=== PATIENT | female | born 1980 | race Caucasian/White ===

== ENCOUNTER 2018-12-15 13:50 | Emergency (ER) | payer MEDICAID ==
[~2018-12-15] VITALS: Ht 152.4 cm; Wt 73.0 kg
[2018-12-15 13:52] VITALS: BP 108/59; PULSE 94; RESP 18; Ht 152.4 cm; Wt 73.0 kg
--- NOTE | 2018-12-15 14:11 | EN ---
Date/Time of Note Date/Time of Note DATE: 12/15/18 TIME: 14:09 ER Progress Note 38-year-old female, A1, LMP 11/23/2018, presents to the ER, referred by her primary doctor after having a Pap smear yesterday for an ultrasound and evaluation of persistent pelvic pain. Patient seen initially in ED 3, patient is stable to go to ED to for further management. EZRA MAYERS MD Dec 15, 2018 14:11
--- NOTE | 2018-12-15 15:03 | ERD ---
ER Documentation Chief Complaint Chief Complaint right inguinal area radiating to the back HPI 38-year-old female presents complaint of bilateral pelvic pain for the past 2 weeks. In addition she is been having lower back pain for the past 2 weeks as well. Patient denies any history of gynecologic pathology. Patient denies any fevers, chills, vomiting, nausea, diarrhea, anorexia, dysuria, hematuria. Patient is ambulatory without difficulty. ROS All systems reviewed and are negative except as per history of present illness. Medications Home Meds Active Scripts Hydrocodone/Acetaminophen ([place] 5-325 Tablet) 1 Each Tablet, 1-2 TAB PO Q6H PRN for PAIN, #15 TAB Prov:ERIC CHANEY 12/15/18 Allergies Allergies: Coded Allergies: No Known Allergy (Unverified , 12/15/18) PMhx/Soc Medical and Surgical Hx: pt denies Medical Hx History of Surgery: Yes (C/S) Anesthesia Reaction: No Hx Alcohol Use: No Hx Substance Use: No Hx Tobacco Use: No Smoking Status: Never smoker FmHx Family History: No diabetes, No coronary disease, No other Physical Exam Vitals Vital Signs Date Temp Pulse Resp B/P (MAP) Pulse Ox O2 O2 Flow FiO2 Time Delivery Rate 12/15/18 97.7 94 18 108/59 98 13:52 (75) Physical Exam Const: No acute distress Head: Atraumatic Eyes: Normal Conjunctiva ENT: Normal External Ears, Nose and Mouth. Neck: Full range of motion. No meningismus. Resp: Clear to auscultation bilaterally Cardio: Regular rate and rhythm, no murmurs Abd: Mild tenderness to palpation in the lower right and left quadrants without guarding or rigidity. Otherwise nontender nondistended abdomen. Able to jump up and down on exam. Skin: No petechiae or rashes Back: Mild bilateral CVA tenderness. Full range of motion. Ext: No cyanosis, or edema Neur: Awake and alert Psych: Normal Mood and Affect Result Diagram: 12/15/18 1447 12/15/18 1447 Results 24 hrs Laboratory Tests Test 12/15/18 14:35 12/15/18 14:37 12/15/18 14:47 POC Beta HCG, Qualitative NEGATIVE Bedside Urine pH (LAB) 5.5 Bedside Urine Protein (LAB) Negative Bedside Urine Glucose (UA) Negative Bedside Urine Ketones (LAB) Negative Bedside Urine Blood Trace-lysed Bedside Urine Nitrite (LAB) Negative Bedside Urine Leukocyte Esterase Negative (L White Blood Count 7.6 10^3/ul Red Blood Count 3.99 10^6/ul Hemoglobin 12.1 g/dl Hematocrit 35.8 % Mean Corpuscular Volume 89.7 fl Mean Corpuscular Hemoglobin 30.3 pg Mean Corpuscular 33.8 g/dl Hemoglobin Concent Red Cell Distribution Width 12.5 % Platelet Count 289 10^3/UL Mean Platelet Volume 10.2 fl Immature Granulocytes % 0.300 % Neutrophils % 66.2 % Lymphocytes % 26.3 % Monocytes % 5.4 % Eosinophils % 1.3 % Basophils % 0.5 % Nucleated Red Blood Cells % 0.0 /100WBC Immature Granulocytes # 0.020 10^3/ul Neutrophils # 5.0 10^3/ul Lymphocytes # 2.0 10^3/ul Monocytes # 0.4 10^3/ul Eosinophils # 0.1 10^3/ul Basophils # 0.0 10^3/ul Nucleated Red Blood Cells # 0.0 10^3/ul Urine Color YELLOW Urine Clarity CLEAR Urine pH 5.0 Urine Specific [place] 1.014 Urine Ketones NEGATIVE mg/dL Urine Nitrite NEGATIVE mg/dL Urine Bilirubin NEGATIVE mg/dL Urine Urobilinogen NEGATIVE mg/dL Urine Leukocyte Esterase NEGATIVE [place]/ul Urine Hemoglobin NEGATIVE mg/dL Urine Glucose NEGATIVE mg/dL Urine Total Protein NEGATIVE mg/dl Sodium Level 140 mmol/L Potassium Level 4.6 mmol/L Chloride Level 105 mmol/L Carbon Dioxide Level 25 mmol/L Anion Gap 10 Blood Urea Nitrogen 14 mg/dl Creatinine 1.12 mg/dl Est Glomerular Filtrat 55 mL/min Rate mL/min Glucose Level 108 mg/dl Calcium Level 9.6 mg/dl Procedures/[facility] DIAGNOSTIC IMAGING REPORT Patient: TACOS KENT : 1980 Age: 38 Sex: F MR #: [id number] [facility] #: [id number] DOS: 12/15/18 0000 Ordering MD: EZRA MAYERS MD Location: [facility]TE Room/Bed: PROCEDURE: US Pelvis. CLINICAL INDICATION: Pelvic pain. TECHNIQUE: The pelvis was evaluated with transabdominal and transvaginal son ography in the axial and sagittal planes. COMPARISON: No prior study is available for comparison. FINDINGS: Uterus: 9.5 x 3.4 x 2.6 cm. Endometrium: 11 mm. Right ovary: 3.4 x 2.6 x 2.3 cm. Left ovary: 3.8 x 3 x 2 cm. Uterine masses: There are several fibroids of the uterus. There is an index 1.7 x 1.4 cm hypoechoic lesion within the posterior myometrium, likely a fibroid. There is another subserosal fibroid within the uterus measuring 2.1 x 1.8 cm. Ovarian masses: None. Color Doppler and pulsed Doppler sonography demonstrate normal flow to the ovaries. Other pelvic masses: None. Free fluid: None. IMPRESSION: 1. Fibroid uterus. 2. Bilateral ovarian flow. RPTAT: QQ Physician Nicola Date Time Electronically viewed and signed by Physician Nicola on 12/15/2018 15:59 RD/ CC: EZRA MAYERS MD [id number] MDM: Patient denies any fevers, anorexia, is able to jump up and down on exam, has no white counts or neutrophilia. Therefore I have very low suspicion for appendicitis. Pelvic ultrasound was ordered and results are positive for fibroids which could explain patient's bilateral pelvic tenderness. I have low suspicion for ectopic , ovarian torsion, PID, tubo-ovarian abscess, uterine prolapse, ovarian cancer, uterine cancer, nephrolithiasis, pyelonephritis, appendicitis, diverticulitis, bowel obstruction, perirectal abscess. At this time, patient is stable for discharge and outpatient management. I have instructed the patient to follow-up with his/her primary care physician in 1-2 days. I have discussed with the patient the possibility of needing to see a specialist for further workup and imaging studies if symptoms persist. I have instructed the patient to promptly return to the ER for any new or worsening symptoms including but not limited to increased pain, fever, nausea, vomiting, weakness or LOC. The patient and/or family expressed understanding of and agreement with this plan. All questions were answered. Home care instructions were provided. [Communication with patient both during the exam and instructions for discharge were performed with using a automobile washer steam . Patient gave verbal confirmation to the practitioner, through the automobile washer steam, that they understood everything that was being said to them.] DISCLAIMER: Inadvertent spelling and grammatical errors are likely due to EHR/dictation software use and do not reflect on the overall quality of patient care. Also, please note that the electronic time recorded on this note does not necessarily reflect the actual time of the patient encounter. ERIC CHANEY Dec 15, 2018 15:03
[2018-12-15] MEDS ORDERED: HYDR-4011 PO (16:47)
== END 2018-12-15 17:02 | disposition home or self-care (01) ==
LOC: E/R 13:50 → FTE 17:02
DX: R10.2 Pelvic and perineal pain (principal)
CPT/HCPCS: 36415; 76830; 76856; 80048; 81003; 81025; 85025; Z7502